=== PATIENT | male | born 1955 | race Caucasian/White ===

== ENCOUNTER 2017-12-20 16:10 | Emergency (ER) | payer MEDICARE ==
[~2017-12-20] VITALS: Ht 162.6 cm; Wt 81.7 kg
[2017-12-20] MEDS ORDERED: LISI20 PO (16:42)
[2017-12-20] MEDS ORDERED: METF500C PO (16:42)
[2017-12-20] MEDS ORDERED: GLIM4 PO (16:43)
[2017-12-20] MEDS ORDERED: Pravachol20 MG PO (16:43)
[2017-12-20] MEDS ORDERED: HYDCHL25 PO (16:44)
[2017-12-20] MEDS ORDERED: Neurontin300 MG PO (16:44)
[2017-12-20] MEDS ORDERED: Norco 5-325 Ta1 EACH PO (17:51)
[2017-12-20] MEDS ORDERED: Cleocin HCl300 MG PO (17:51)
== END 2017-12-20 18:07 | disposition home or self-care (01) ==
LOC: ER 16:10
DX: S62.637A Displaced fracture of distal phalanx of left little finger, initial encounter for closed fracture (principal); S61.317A Laceration without foreign body of left little finger with damage to nail, initial encounter; Z23 Encounter for immunization; I10 Essential (primary) hypertension; E78.00 Pure hypercholesterolemia, unspecified; E11.9 Type 2 diabetes mellitus without complications; Z88.0 Allergy status to penicillin; Z79.899 Other long term (current) drug therapy; Z79.84 Long term (current) use of oral hypoglycemic drugs; W23.0XXA Caught, crushed, jammed, or pinched between moving objects, initial encounter
CPT/HCPCS: 11730; 29130; 73140; 90471; 90714; 99283-25

== ENCOUNTER → 2019-06-06 | Outpatient (CLI) | payer MEDICARE ==
[~2019-06-06] MED LIST: Cleocin HCl300 MG PO; GLIM4 PO; HYDCHL25 PO; LISI20 PO; METF500C PO; Neurontin300 MG PO; Norco 5-325 Ta1 EACH PO; Pravachol20 MG PO
[2019-06-06 20:09] LABS: Percent Saturation 24.7 % (20.0-50.0)
== END | disposition home or self-care (01) ==
LOC: LAB 17:41 → LAB SHORT 17:41
PROVIDERS: Internal Medicine Hematology & Oncology
DX: D50.8 Other iron deficiency anemias (principal); D51.8 Other vitamin B12 deficiency anemias
CPT/HCPCS: 82607; 82746; 83540; 83550